=== PATIENT | female | born 1980 | race Caucasian/White ===

== ENCOUNTER 2016-08-06 08:11 | Emergency (ER) | payer MEDICAID ==
[2016-08-06 09:03] LABS: BASOPHIL % 0.5 % (0-2); PLATELET COUNT 246 x10^3mcL (130-400); RED CELL DISTRIBUTION WIDTH 12.5 % (11.5-14.5)
[2016-08-06 09:20] LABS: CALCIUM 8.8 mg/dL (8.5-10.1); CARBON DIOXIDE 27.2 mmol/L (21-32); CHLORIDE SERUM 100 mmol/L (98-107); CREATININE SERUM 0.7 mg/dL (0.6-1.0); GFR1 > 60 mL/min; GLUCOSE SERUM 248 mg/dL (74-106); POTASSIUM SERUM 4.3 mmol/L (3.5-5.1); SODIUM SERUM 135 mmol/L (136-145)
[2016-08-06 09:25] LABS: ALBUMIN 3.7 g/dL (3.4-5.0); ALKALINE PHOSPHATASE 117 U/L (46-116); ALT/SGPT 22 U/L (14-59); AST/SGOT 18 U/L (15-37); BILIRUBIN TOTAL 0.5 mg/dL (0.20-1.00); LIPASE 255 IU/L (73-393); TOTAL PROTEIN, SERUM 8.2 g/dL (6.4-8.2)
[2016-08-06 11:55] VITALS: BP 122/78
== END 2016-08-06 11:55 | disposition home or self-care (01) ==
LOC: ED 08:11
PROVIDERS: Emergency Medicine
DX: K80.20 Calculus of gallbladder without cholecystitis without obstruction (principal); R11.10 Vomiting, unspecified; K76.0 Fatty (change of) liver, not elsewhere classified
CPT/HCPCS: J2270; J2405; J7030; Q0092

== ENCOUNTER 2017-11-27 05:24 | Inpatient (IN) | payer MEDICAID ==
[~2017-11-27] VITALS: Ht 160 cm; Wt 84.4 kg
[2017-11-27 05:36] VITALS: Ht 160 cm; Wt 84.4 kg
[2017-11-27 07:22] LABS: CALCIUM 8.6 mg/dL (8.5-10.1); CARBON DIOXIDE 24.2 mmol/L (21-32); CHLORIDE SERUM 98 mmol/L (98-107); GFR1 > 60 mL/min; GLUCOSE SERUM 306 mg/dL (74-106); POTASSIUM SERUM 3.7 mmol/L (3.5-5.1); SODIUM SERUM 133 mmol/L (136-145)
[2017-11-27 07:30] LABS: BASOPHIL % 0 % (0-2); PLATELET COUNT 222 x10^3mcL (130-400); RED CELL DISTRIBUTION WIDTH 14.5 % (11.5-14.5)
[2017-11-27 07:36] LABS: ALBUMIN 3.3 g/dL (3.4-5.0); ALKALINE PHOSPHATASE 131 U/L (46-116); ALT/SGPT 19 U/L (14-59); AST/SGOT 13 U/L (15-37); BILIRUBIN TOTAL 0.35 mg/dL (0.20-1.00); FREE T4 1.05 ng/dL (0.76-1.46); LIPASE 251 IU/L (73-393); TOTAL PROTEIN, SERUM 7.6 g/dL (6.4-8.2)
[2017-11-27 09:33] VITALS: BP 125/65
[2017-11-27 10:42] LABS: CHOLESTEROL/HDL RATIO 3.5; MAGNESIUM 1.4 mg/dL (1.8-2.4); PHOSPHOROUS 3.1 mg/dL (2.5-4.9)
[2017-11-27 11:37] LABS: FREE THYROXINE INDEX 1.8 ug/dL (1.4-4.5); T4(THYROXINE) 5.4 ug/dL (4.7-13.3)
[2017-11-27 12:14] LABS: FREE T4 1.05 ng/dL (0.76-1.46)
[2017-11-27 12:37] LABS: T3 TOTAL 0.8 ng/mL
[2017-11-27] MEDS ORDERED: METFORMIN500 M1 PO (13:21)
[2017-11-27 16:07] LABS: UA SPECIFIC GRAVITY 1.025 (1.005-1.035); microscopic required? YES; urine erythrocyte 3+ (NEGATIVE)
[2017-11-27 16:33] LABS: AMPHETAMINE QUAL UR NONE DETECTED (See below)
[2017-11-27 16:55] VITALS: BP 123/75
[2017-11-27 19:50] VITALS: BP 105/53
[2017-11-27 20:56] VITALS: BP 102/53
[2017-11-28 05:38] VITALS: BP 99/53
[2017-11-28 06:29] LABS: BASOPHIL % 0.3 % (0-2); PLATELET COUNT 192 x10^3mcL (130-400)
[2017-11-28 06:58] LABS: CALCIUM 7.5 mg/dL (8.5-10.1); CARBON DIOXIDE 26.7 mmol/L (21-32); CHLORIDE SERUM 103 mmol/L (98-107); CREATININE SERUM 0.7 mg/dL (0.6-1.0); GFR1 > 60 mL/min; GLUCOSE SERUM 199 mg/dL (74-106); POTASSIUM SERUM 3.1 mmol/L (3.5-5.1); SODIUM SERUM 137 mmol/L (136-145)
[2017-11-28 07:09] LABS: RED CELL DISTRIBUTION WIDTH 14.6 % (11.5-14.5)
[2017-11-28 09:13] VITALS: BP 101/59
[2017-11-28 11:50] VITALS: BP 116/68
[2017-11-28 17:31] VITALS: BP 106/63
[2017-11-28 21:00] VITALS: BP 100/54
[2017-11-29 06:21] VITALS: BP 111/62
[2017-11-29 10:45] VITALS: BP 121/76
[2017-11-29 12:33] LABS: BASOPHIL % 0.3 % (0-2); PLATELET COUNT 191 x10^3mcL (130-400); RED CELL DISTRIBUTION WIDTH 14.5 % (11.5-14.5)
[2017-11-29 12:48] LABS: CALCIUM 8.4 mg/dL (8.5-10.1); CARBON DIOXIDE 25.1 mmol/L (21-32); CHLORIDE SERUM 105 mmol/L (98-107); CREATININE SERUM 0.7 mg/dL (0.6-1.0); GFR1 > 60 mL/min; GLUCOSE SERUM 197 mg/dL (74-106); POTASSIUM SERUM 3.6 mmol/L (3.5-5.1); SODIUM SERUM 136 mmol/L (136-145)
[2017-11-29] MEDS ORDERED: ACETAMINOPHEN-H1 TA1 PO (14:59)
[2017-11-29] MEDS ORDERED: LEVAQUIN750 MG PO (15:00)
[2017-11-29 15:16] VITALS: BP 121/76
== END 2017-11-29 17:40 | disposition home or self-care (01) | DRG 463 ==
LOC: ED 05:24 → MU 08:13
PROVIDERS: Emergency Medicine; Internal Medicine
DX: N10 Acute pyelonephritis (principal); N17.0 Acute kidney failure with tubular necrosis; E11.65 Type 2 diabetes mellitus with hyperglycemia; E83.42 Hypomagnesemia; E83.51 Hypocalcemia; E44.1 Mild protein-calorie malnutrition; E87.6 Hypokalemia; E66.9 Obesity, unspecified; Z68.32 Body mass index [BMI] 32.0-32.9, adult
CPT/HCPCS: 82962; 83880; 84439; G0480; J0696; J2270; J2405; J2543; J7030; Q0092

== ENCOUNTER 2018-11-01 19:00 | Emergency (ER) | payer MEDICAID ==
[~2018-11-01] VITALS: Ht 157.5 cm; Wt 86.2 kg
[~2018-11-01 19:00] MED LIST: ACETAMINOPHEN-H1 TA1 PO; LEVAQUIN750 MG PO; METFORMIN500 M1 PO
[2018-11-01 19:17] VITALS: Ht 157.5 cm; Wt 86.2 kg
[2018-11-01 23:10] VITALS: BP 118/70
== END 2018-11-01 23:10 | disposition home or self-care (01) ==
LOC: ED 19:00
DX: H10.32 Unspecified acute conjunctivitis, left eye (principal); E11.9 Type 2 diabetes mellitus without complications

== ENCOUNTER 2019-06-22 11:47 | Emergency (ER) | payer MEDICAID ==
[~2019-06-22] VITALS: Ht 167.6 cm; Wt 84.4 kg
[2019-06-22 12:26] VITALS: Ht 167.6 cm; Wt 84.4 kg
[2019-06-22 13:26] LABS: BASOPHIL % 0.3 % (0-2); PLATELET COUNT 271 x10^3mcL (130-400); RED CELL DISTRIBUTION WIDTH 12.5 % (11.5-14.5)
[2019-06-22 13:28] LABS: CALCIUM 8.8 mg/dL (8.5-10.1); CARBON DIOXIDE 27.4 mmol/L (21-32); CHLORIDE SERUM 102 mmol/L (98-107); CREATININE SERUM 0.8 mg/dL (0.6-1.0); GFR1 > 60 mL/min; GLUCOSE SERUM 307 mg/dL (74-106); SODIUM SERUM 138 mmol/L (136-145)
[2019-06-22 13:32] LABS: ALKALINE PHOSPHATASE 127 U/L (46-116); ALT/SGPT 24 U/L (14-59); AST/SGOT 13 U/L (15-37); BILIRUBIN TOTAL 0.3 mg/dL (0.20-1.00); TOTAL PROTEIN, SERUM 7.6 g/dL (6.4-8.2)
[2019-06-22 13:34] LABS: ALBUMIN 3.1 g/dL (3.4-5.0)
[2019-06-22 14:48] VITALS: BP 136/72
== END 2019-06-22 14:48 | disposition home or self-care (01) ==
LOC: ED 11:47
PROVIDERS: Emergency Medicine
DX: E11.65 Type 2 diabetes mellitus with hyperglycemia (principal); K29.70 Gastritis, unspecified, without bleeding; R20.2 Paresthesia of skin; G43.909 Migraine, unspecified, not intractable, without status migrainosus; Z90.49 Acquired absence of other specified parts of digestive tract
CPT/HCPCS: 82962; J0780; J1200; J1885; Q0092

== ENCOUNTER 2019-11-19 05:34 | Emergency (ER) | payer MEDICAID ==
[~2019-11-19] VITALS: Ht 165.1 cm; Wt 84.8 kg
[2019-11-19 05:39] VITALS: Ht 165.1 cm; Wt 84.8 kg
[2019-11-19 08:14] LABS: BASOPHIL % 0.2 % (0-2); PLATELET COUNT 225 x10^3mcL (130-400); RED CELL DISTRIBUTION WIDTH 12.6 % (11.5-14.5)
[2019-11-19 08:21] LABS: CALCIUM 8.1 mg/dL (8.5-10.1); CARBON DIOXIDE 26.9 mmol/L (21-32); CHLORIDE SERUM 101 mmol/L (98-107); CREATININE SERUM 0.7 mg/dL (0.6-1.0); GFR1 > 60 mL/min; GLUCOSE SERUM 296 mg/dL (74-106); POTASSIUM SERUM 4.3 mmol/L (3.5-5.1); SODIUM SERUM 135 mmol/L (136-145)
[2019-11-19 08:25] LABS: ALKALINE PHOSPHATASE 115 U/L (46-116); ALT/SGPT 37 U/L (14-59); AST/SGOT 25 U/L (15-37); BILIRUBIN TOTAL 0.2 mg/dL (0.20-1.00); C REACTIVE PROTEIN 1.2 mg/dL (<=0.9)
[2019-11-19 09:41] LABS: ERYTHROCYTE SED RATE 35 mm/hr (0-20)
[2019-11-19 11:07] VITALS: BP 123/73
== END 2019-11-19 11:08 | disposition home or self-care (01) ==
LOC: ED 05:34
PROVIDERS: Specialist
DX: H57.11 Ocular pain, right eye (principal); E11.9 Type 2 diabetes mellitus without complications; G43.909 Migraine, unspecified, not intractable, without status migrainosus; Z90.49 Acquired absence of other specified parts of digestive tract
CPT/HCPCS: 82962; J1885; J7030; J7512

== ENCOUNTER 2020-02-01 04:48 | Emergency (ER) | payer MEDICAID ==
[~2020-02-01] VITALS: Ht 165.1 cm; Wt 85.4 kg
[2020-02-01 04:57] VITALS: Ht 165.1 cm; Wt 85.4 kg
[2020-02-01 10:31] VITALS: BP 175/84
== END 2020-02-01 10:31 | disposition home or self-care (01) ==
LOC: ED 04:48
DX: H40.9 Unspecified glaucoma (principal); E11.9 Type 2 diabetes mellitus without complications; G43.909 Migraine, unspecified, not intractable, without status migrainosus; Z90.49 Acquired absence of other specified parts of digestive tract; Z98.890 Other specified postprocedural states
CPT/HCPCS: J1120; J3030